=== PATIENT | female | born 1930 | race African-American/Black ===

== ENCOUNTER 2017-02-15 12:33 | Inpatient (IN) | payer MEDICARE, OTHER ==
[~2017-02-15] VITALS: Ht 172.7 cm; Wt 89.8 kg
[2017-02-15] MEDS ORDERED: SODIUM CHLORIDE 0.9% 1,000 ML IV ONE (14:07)
[2017-02-15] MEDS ORDERED: ACETAMINOPHEN 325MG TABLET PO STA (14:07)
[2017-02-15] MEDS ORDERED: LEVOFLOXACIN 750MG PREMIX 150 ML IV ONE (14:15)
[2017-02-15 15:23] LABS: HEMATOCRIT. 35.3 % (36.0-48.0); HEMOGLOBIN. 11.7 g/dL (12.0-16.0); MEAN CORPUSCULAR VOLUME 87.9 fL (81.0-99.0); MEAN PLATELET VOLUME 9.7 fl (7.4-10.4); PLATELET 147 x1000/uL (130-400); RED BLOOD CELL COUNT 4.02 mill/uL (4.2-5.4); RED CELL DISTRIBUTION WIDTH 14.2 % (11.6-14.6)
[2017-02-15 15:27] LABS: INR 1.2; PROTHROMBIN TIME 12.8 sec
[2017-02-15 15:39] LABS: CARBON DIOXIDE 27 mEq/L (21-32); CHLORIDE 101 mEq/L (98-107); ETHANOL BLOOD < 10 mg/dL; TROPONIN I 0.02 ng/mL (0.00-0.04)
[2017-02-15] MEDS ORDERED: POTASSIUM CHLORIDE 20MEQ TABLET SR PO ONE (16:00)
[2017-02-15 16:31] LABS: PLATELET ESTIMATE NORMAL
[2017-02-15 17:51] LABS: CLARITY URINE TURBID (CLEAR); COLOR URINE DARK YELLOW (YELLOW); GLUCOSE URINE NEGATIVE (NEGATIVE); KETONES URINE NEGATIVE (NEGATIVE); LEUKOCYTE ESTERASE URINE 3+ (NEGATIVE); NITRITE URINE NEGATIVE (NEGATIVE); OCCULT BLOOD URINE 3+ (NEGATIVE); PH URINE 5.5 (4.5-8.0); PROTEIN URINE 2+ (NEGATIVE); SPECIFIC GRAVITY URINE 1.011 (1.005-1.030)
[2017-02-15] MEDS ORDERED: CLONIDINE 0.1MG TABLET PO PRN (20:00)
[2017-02-15] MEDS ORDERED: HYDROMORPHONE HCL/PF 2MG/ML CPJ IV PRN (20:00)
[2017-02-15] MEDS ORDERED: ONDANSETRON HCL 4MG/2ML VIAL IV PRN (20:00)
[2017-02-15] MEDS ORDERED: DOCUSATE SODIUM 100MG CAPSULE PO PRN (20:00)
[2017-02-15 21:00] VITALS: BP 159/83
[2017-02-15] MEDS ORDERED: ASPI-1159 PO (21:10)
[2017-02-15] MEDS ORDERED: AMLO10TA4 PO (21:10)
[2017-02-15] MEDS ORDERED: CARV12.545 PO (21:10)
[2017-02-15] MEDS: ACETAMINOPHEN 325MG TABLET PO PRN ×2 (21:16→21:27)
[2017-02-15] MEDS: ENOXAPARIN 40MG/0.4ML SYR SUBCUT SCH (21:16)
[2017-02-15 22:01] VITALS: BP 159/83
[2017-02-15] MEDS: SODIUM CHLORIDE 0.45% 1,000 ML IV SCH (22:02)
[2017-02-16] VITALS: BP 107/72
[2017-02-16 04:00] VITALS: BP 113/66
[2017-02-16 07:35] LABS: HEMATOCRIT. 35.1 % (36.0-48.0); HEMOGLOBIN. 11.6 g/dL (12.0-16.0); MEAN CORPUSCULAR VOLUME 87.6 fL (81.0-99.0); MEAN PLATELET VOLUME 10.4 fl (7.4-10.4); PLATELET 142 x1000/uL (130-400); RED CELL DISTRIBUTION WIDTH 14.4 % (11.6-14.6)
[2017-02-16 08:24] LABS: CARBON DIOXIDE 29 mEq/L (21-32); CHLORIDE 104 mEq/L (98-107); TROPONIN I < 0.02 ng/mL (0.00-0.04)
[2017-02-16 08:51] VITALS: BP 135/79
[2017-02-16] MEDS: AMLODIPINE 10MG TABLET PO SCH (08:51)
[2017-02-16] MEDS: ASPIRIN 81MG EC TABLET PO SCH (08:51)
[2017-02-16] MEDS: CARVEDILOL 12.5MG TABLET PO SCH ×2 (08:51→21:28)
[2017-02-16] MEDS: SODIUM CHLORIDE 0.45% 1,000 ML IV SCH (11:55)
[2017-02-16 12:00] VITALS: BP 99/60
[2017-02-16 13:21] LABS: PLATELET ESTIMATE NORMAL
[2017-02-16] MEDS ORDERED: LEVOFLOXACIN 500MG PREMIX 100 ML IV SCH (15:00)
[2017-02-16 16:29] VITALS: BP 130/67
[2017-02-16] MEDS: ACETAMINOPHEN 325MG TABLET PO PRN (16:34)
[2017-02-16 20:00] VITALS: BP 131/69
[2017-02-16] MEDS: ENOXAPARIN 40MG/0.4ML SYR SUBCUT SCH (21:28)
[2017-02-17] VITALS: BP_SYST 131; BP_SYST 141; BP_DIAS 103; BP_DIAS 69
[2017-02-17] MEDS: SODIUM CHLORIDE 0.45% 1,000 ML IV SCH ×2 (02:19→12:30)
[2017-02-17 04:00] VITALS: BP 130/73
[2017-02-17 06:04] LABS: HEMOGLOBIN. 11.5 g/dL (12.0-16.0); MEAN CORPUSCULAR HEMOGLOBIN 29.6 pg (28.0-32.0); MEAN CORPUSCULAR VOLUME 87.2 fL (81.0-99.0); MEAN PLATELET VOLUME 10.5 fl (7.4-10.4); PLATELET 156 x1000/uL (130-400); RED CELL DISTRIBUTION WIDTH 14.6 % (11.6-14.6)
[2017-02-17 07:42] LABS: CARBON DIOXIDE 29 mEq/L (21-32); CHLORIDE 102 mEq/L (98-107)
[2017-02-17 08:00] VITALS: BP 138/79
[2017-02-17] MEDS: AMLODIPINE 10MG TABLET PO SCH (08:40)
[2017-02-17] MEDS: CARVEDILOL 12.5MG TABLET PO SCH ×2 (08:40→21:27)
[2017-02-17] MEDS: ASPIRIN 81MG EC TABLET PO SCH (08:41)
[2017-02-17] MEDS ORDERED: POTASSIUM CHLORIDE 20MEQ TABLET SR PO SCH (10:45)
[2017-02-17 11:17] LABS: PHOSPHORUS 1.3 mg/dL (2.5-4.9)
[2017-02-17] MEDS: ACETAMINOPHEN 325MG TABLET PO PRN (11:27)
[2017-02-17 11:54] VITALS: BP 130/72
[2017-02-17 12:05] LABS: PLATELET ESTIMATE NORMAL
[2017-02-17 16:00] VITALS: BP 125/64
[2017-02-17] MEDS: CEFAZOLIN 2,000 MG in DEXT 5% WATER 100 ML IV SCH (18:29)
[2017-02-17 20:00] VITALS: BP 147/80
[2017-02-17] MEDS: ENOXAPARIN 40MG/0.4ML SYR SUBCUT SCH (21:28)
[2017-02-18] VITALS: BP 130/77
[2017-02-18] MEDS: SODIUM CHLORIDE 0.45% 1,000 ML IV SCH (01:20)
[2017-02-18] MEDS: CEFAZOLIN 2,000 MG in DEXT 5% WATER 100 ML IV SCH ×3 (01:46→17:12)
[2017-02-18 04:00] VITALS: BP 138/81
[2017-02-18 07:59] LABS: CHLORIDE 104 mEq/L (98-107)
[2017-02-18 08:00] VITALS: BP 133/75
[2017-02-18 08:06] LABS: BASOPHILS % 0.4 % (0.0-2.0); EOSINOPHILS % 0.5 % (0.0-5.0); HEMATOCRIT. 32.9 % (36.0-48.0); HEMOGLOBIN. 11.2 g/dL (12.0-16.0); LYMPHOCYTES % 9.1 % (20.0-50.0); MEAN CORPUSCULAR HEMOGLOBIN 29.6 pg (28.0-32.0); MEAN CORPUSCULAR VOLUME 86.7 fL (81.0-99.0); MEAN PLATELET VOLUME 10.3 fl (7.4-10.4); MONOCYTES % 13.7 % (2.0-8.0); NEUTROPHILS % 76.3 % (40.0-76.0); PLATELET 155 x1000/uL (130-400); RED BLOOD CELL COUNT 3.79 mill/uL (4.2-5.4); RED CELL DISTRIBUTION WIDTH 14.5 % (11.6-14.6)
[2017-02-18 08:19] LABS: CARBON DIOXIDE 28 mEq/L (21-32); PHOSPHORUS 1.9 mg/dL (2.5-4.9)
[2017-02-18] MEDS: CARVEDILOL 12.5MG TABLET PO SCH ×2 (09:24→21:45)
[2017-02-18] MEDS: ASPIRIN 81MG EC TABLET PO SCH (09:25)
[2017-02-18] MEDS: AMLODIPINE 10MG TABLET PO SCH (09:26)
[2017-02-18] MEDS ORDERED: POTASSIUM PHOS,M-BASIC-D-BASIC 20 MMOL in DEXT 5% WATER 243.3333 ML IV NR (11:00)
[2017-02-18 12:00] VITALS: BP 102/72
[2017-02-18 16:00] VITALS: BP 125/68
[2017-02-18 20:07] VITALS: BP 131/75
[2017-02-18] MEDS: ENOXAPARIN 40MG/0.4ML SYR SUBCUT SCH (21:45)
[2017-02-19] VITALS: BP 127/79
[2017-02-19] MEDS: CEFAZOLIN 2,000 MG in DEXT 5% WATER 100 ML IV SCH ×3 (01:48→17:18)
[2017-02-19 04:02] VITALS: BP 147/77
[2017-02-19 08:00] VITALS: BP 136/87
[2017-02-19] MEDS: ASPIRIN 81MG EC TABLET PO SCH (08:34)
[2017-02-19] MEDS: AMLODIPINE 10MG TABLET PO SCH (08:35)
[2017-02-19] MEDS: CARVEDILOL 12.5MG TABLET PO SCH ×2 (08:35→21:16)
[2017-02-19] MEDS ORDERED: POTASSIUM PHOS,M-BASIC-D-BASIC 20 MMOL in DEXT 5% WATER 243.3333 ML IV ONE (11:45)
[2017-02-19 13:30] VITALS: BP 108/58
[2017-02-19 16:00] VITALS: BP 113/65
[2017-02-19 20:00] VITALS: BP 126/72
[2017-02-19] MEDS: ENOXAPARIN 40MG/0.4ML SYR SUBCUT SCH (21:17)
[2017-02-20 00:09] VITALS: BP 132/73
[2017-02-20] MEDS: CEFAZOLIN 2,000 MG in DEXT 5% WATER 100 ML IV SCH ×3 (02:05→17:33)
[2017-02-20 04:00] VITALS: BP 135/74
[2017-02-20 06:30] LABS: BASOPHILS % 0.4 % (0.0-2.0); HEMATOCRIT. 33.3 % (36.0-48.0); HEMOGLOBIN. 11.2 g/dL (12.0-16.0); LYMPHOCYTES % 16.7 % (20.0-50.0); MEAN CORPUSCULAR HEMOGLOBIN 29.3 pg (28.0-32.0); MEAN PLATELET VOLUME 9.7 fl (7.4-10.4); MONOCYTES % 11.5 % (2.0-8.0); NEUTROPHILS % 69.4 % (40.0-76.0); PLATELET 190 x1000/uL (130-400); RED BLOOD CELL COUNT 3.82 mill/uL (4.2-5.4); RED CELL DISTRIBUTION WIDTH 14.7 % (11.6-14.6)
[2017-02-20 06:34] LABS: CARBON DIOXIDE 31 mEq/L (21-32); CHLORIDE 100 mEq/L (98-107); PHOSPHORUS 2.6 mg/dL (2.5-4.9)
[2017-02-20 08:00] VITALS: BP 141/100
[2017-02-20] MEDS: ASPIRIN 81MG EC TABLET PO SCH (10:04)
[2017-02-20] MEDS: CARVEDILOL 12.5MG TABLET PO SCH ×2 (10:04→21:50)
[2017-02-20] MEDS: AMLODIPINE 10MG TABLET PO SCH (10:05)
[2017-02-20 12:00] VITALS: BP 112/68
[2017-02-20 16:00] VITALS: BP 116/69
[2017-02-20 20:00] VITALS: BP 130/70
[2017-02-20] MEDS: ENOXAPARIN 40MG/0.4ML SYR SUBCUT SCH (21:50)
[2017-02-21] VITALS: BP 133/84
[2017-02-21] MEDS: CEFAZOLIN 2,000 MG in DEXT 5% WATER 100 ML IV SCH ×2 (01:51→10:22)
[2017-02-21 04:00] VITALS: BP 106/69
[2017-02-21 08:00] VITALS: BP 144/82
[2017-02-21] MEDS ORDERED: POTASSIUM CHLORIDE 20MEQ TABLET SR PO NR (08:45)
[2017-02-21] MEDS: ASPIRIN 81MG EC TABLET PO SCH (08:52)
[2017-02-21] MEDS: CARVEDILOL 12.5MG TABLET PO SCH (08:54)
[2017-02-21] MEDS: AMLODIPINE 10MG TABLET PO SCH (08:54)
[2017-02-21] MEDS ORDERED: LIDOCAINE HCL 1% 20ML VIAL (Pyxis) INJ ONE (11:18)
[2017-02-21] MEDS ORDERED: SODIUM CHLORIDE 0.9% 10ML VIAL ONE (11:19)
[2017-02-21 12:00] VITALS: BP 122/69
[2017-02-21 13:37] LABS: INR 1.1; PARTIAL THROMBOPLASTIN TIME 29.4 sec (24.0-34.0)
[2017-02-21 16:00] VITALS: BP 111/72
[2017-02-21 16:46] VITALS: BP 111/72
== END 2017-02-21 17:35 | DRG 871 ==
LOC: ER 15:15 → 7WST 16:10 → EDBEDREQ 16:14 → EDBEDREQSVC 16:14 → ENRESERV 19:07
PROVIDERS: ADMIT Internal Medicine Nephrology; ATTEND Internal Medicine Nephrology
PROC: 02HV33Z Insertion of Infusion Device into Superior Vena Cava, Percutaneous Approach (ICD-10-PCS; principal; 2017-02-21)
PROC: B5181ZA Fluoroscopy of Superior Vena Cava using Low Osmolar Contrast, Guidance (ICD-10-PCS; 2017-02-21)
PROC: B548ZZA Ultrasonography of Superior Vena Cava, Guidance (ICD-10-PCS; 2017-02-21)
DX: A41.9 Sepsis, unspecified organism (principal); E43 Unspecified severe protein-calorie malnutrition; N39.0 Urinary tract infection, site not specified; R17 Unspecified jaundice; E86.0 Dehydration; E87.6 Hypokalemia; D64.9 Anemia, unspecified; B96.89 Other specified bacterial agents as the cause of diseases classified elsewhere; B96.20 Unspecified Escherichia coli [E. coli] as the cause of diseases classified elsewhere; E83.39 Other disorders of phosphorus metabolism; I11.9 Hypertensive heart disease without heart failure; I25.10 Atherosclerotic heart disease of native coronary artery without angina pectoris; E66.9 Obesity, unspecified; Z82.49 Family history of ischemic heart disease and other diseases of the circulatory system; Z95.0 Presence of cardiac pacemaker; Z68.30 Body mass index [BMI] 30.0-30.9, adult
CPT/HCPCS: 36415; 36569; 71010; 76937; 77001; 80048; 80053; 81001; 83605; 83735; 83880; 84100; 84484; 85025; 85610; 85730; 87040; 87077; 87086; 87186; 87804; 93005; 93306; 93970; 96361; 96366; 96374; 97116; 97162; 97166; 97530; 99285; A4216; C1725; G0482; J0690; J1650; J1956; J2405; J3490; J7030; J7050; J7060